=== PATIENT | female | born 1980 | race Caucasian/White ===

== ENCOUNTER → 2019-10-05 14:39 | Outpatient (BNVA) | payer OTHER, SELFPAY | PROVIDERS: Visit Provider Emergency Medicine | DX: S99.929A Unspecified injury of unspecified foot, initial encounter (principal); S99.922A Unspecified injury of left foot, initial encounter; S92.355A Nondisplaced fracture of fifth metatarsal bone, left foot, initial encounter for closed fracture; X58.XXXA Exposure to other specified factors, initial encounter | CPT/HCPCS: 73630 ==